=== PATIENT | male | born 1945 | race Caucasian/White ===

== ENCOUNTER 2021-09-11 09:23 | Outpatient (CLI) | payer MEDICARE, OTHER ==
[2021-09-11 22:06] LABS: SARS-CoV-2 PCR by NAA Not Detected (NotDetected)
== END 2021-09-11 09:24 | disposition home or self-care (01) ==
LOC: LABBT 09:23
PROVIDERS: ATTEND Ophthalmology Retina Specialist
DX: H44.731 Retained (nonmagnetic) (old) foreign body in lens, right eye (principal); Z20.822 Contact with and (suspected) exposure to COVID-19
CPT/HCPCS: U0003; U0005

== ENCOUNTER 2021-09-12 05:53 | Day surgery (SDC) | payer MEDICARE, OTHER ==
[2021-09-11 09:43] VITALS: BMI 27.7
[2021-09-12] MEDS ORDERED: EPINEPHrine 0.3 MG in Ophthalmic Irrigation Solution 500 ML IRR SCH (06:00)
[2021-09-12] MEDS ORDERED: Phenylephrine 2.5% Ophth Soln 5 ML BOT ONE (06:02)
[2021-09-12] MEDS ORDERED: Cyclopentolate 1% Opth Drop 2 ML BOT ONE (06:02)
[2021-09-12] MEDS ORDERED: Midazolam HCl 2 mg/2 ml Vial ONE (06:30)
[2021-09-12] MEDS ORDERED: Fentanyl 250 MCG/5 ML VIAL ONE (06:30)
[2021-09-12] MEDS ORDERED: Bupivacaine 0.75% 10 ML VIAL ONE (07:04)
[2021-09-12] MEDS ORDERED: Maxitrol 0.1% Opth Oint 3.5 GM TUBE ONE (07:04)
[2021-09-12] MEDS ORDERED: Ondansetron PF 4 MG/2 ML Vial ONE (07:04)
[2021-09-12] MEDS ORDERED: Triamcinolone 40 MG/ML VIAL ONE (07:04)
[2021-09-12] MEDS ORDERED: PROPOFOL 200 MG/20 ML VIAL ONE (07:04)
[2021-09-12] MEDS ORDERED: PHENYLEPHRINE-NS 100 MCG/ML 10 ML SYRINGE ONE (07:04)
[2021-09-12] MEDS ORDERED: Lidocaine 1% PF 5 ML VIAL ONE ×2 (07:04)
[2021-09-12] MEDS ORDERED: Metoclopramide HCl 10 MG/2 ML VIAL ONE (07:04)
[2021-09-12] MEDS ORDERED: ePHEDrine 50 MG/ML VIAL ONE (07:04)
[2021-09-12] MEDS ORDERED: Lidocaine 4% PF 5 ML AMP ONE (07:04)
[2021-09-12] MEDS ORDERED: CEFAZOLIN 1 GM VIAL ONE (07:04)
== END 2021-09-12 10:32 | disposition home or self-care (01) ==
LOC: SDC 05:53
PROVIDERS: ATTEND Ophthalmology Retina Specialist
PROC: 08DJ3ZZ Extraction of Right Lens, Percutaneous Approach (ICD-10-PCS; principal; 2021-09-12)
PROC: 08RJ3JZ Replacement of Right Lens with Synthetic Substitute, Percutaneous Approach (ICD-10-PCS; 2021-09-12)
DX: H27.01 Aphakia, right eye (principal); Z79.84 Long term (current) use of oral hypoglycemic drugs; Z79.899 Other long term (current) drug therapy; Z95.5 Presence of coronary angioplasty implant and graft
CPT/HCPCS: J0171; J0690; J2250; J2405; J2704; J2765; J3010; J3301; J3490; V2632